=== PATIENT | male | born 1970 | race Two or more races ===

== ENCOUNTER 2021-05-20 23:32 | Emergency (ER) | payer MEDICAID ==
[~2021-05-20] VITALS: Ht 170.2 cm; Wt 99.8 kg
[2021-05-20 23:51] VITALS: BP 165/113
== END 2021-05-21 06:05 | disposition home or self-care (01) ==
LOC: EDSEX 23:32 → EDBD 23:32 → ER 23:32
DX: S21.112A Laceration without foreign body of left front wall of thorax without penetration into thoracic cavity, initial encounter (principal); I10 Essential (primary) hypertension; W26.0XXA Contact with knife, initial encounter; Y93.89 Activity, other specified; Y92.89 Other specified places as the place of occurrence of the external cause; Y99.8 Other external cause status
CPT/HCPCS: 12002; 71045